=== PATIENT | female | born 1990 | race Caucasian/White ===

== ENCOUNTER 2024-07-05 21:09 | Inpatient (IN) ==
[2024-07-05] MEDS ORDERED: OXYTOCIN 30 UNITS/NSS 30 UNITS/500 ML BAG IV PRN (22:21)
[2024-07-05] MEDS ORDERED: LIDOCAINE 1% LOCAL 20 ML VIAL INFIL PRN (22:21)
[2024-07-05] MEDS ORDERED: CALCIUM CARBONATE 500 MG CHEWABLE TAB PO PRN (22:21)
--- NOTE | 2024-07-05 22:27 | History & Physical Report ---
Date of Service July 05, 2024 Assessment & Plan (1) 37 weeks gestation of : (2) PROM (premature rupture of membranes): (3) Encounter for induction of labor: Plan admit, iv labs. fhts categ 1. pcn for gbs pos. begin pitocin induction, reviewed with couple, epidural when desires. History of Present Illness Chief Complaint: prom at term Primary Care Provider: KATLYN Pepper 33yo at 37+wks ega presents to LD with prom, clear fluid. She notes leaking since having sex this pm, soaking pads. +FM. No ctx. [place] dc. PNC c/b 1. GBS pos 2. HAs, managed with propranolol and supplements. PNL rhpos, ri, gbs pos OBH: g1 GYNH: neg paps, no stds Allergies Allergy/AdvReac Type Severity Reaction Status Date / Time No Known Allergies Allergy Verified 07/05/24 21:32 Home Medications Medication Instructions Recorded Confirmed Type propranolol 40 mg tablet 40 mg PO HS migraines 10/27/22 07/05/24 History magnesium oxide 400 mg (241.3 mg 400 mg PO HS #30 tabs 12/22/22 07/05/24 Rx magnesium) tablet riboflavin (vitamin B2) 400 mg 400 mg PO HS 10/23/23 07/05/24 History tablet cyclobenzaprine 5 mg tablet 5 mg PO HS PRN muscle tension or 01/04/24 07/05/24 Rx spasm #30 tabs clindamycin phosphate 1 % lotion 1 applic topical BID PRN ACNE 03/22/24 07/05/24 Rx BREAKOUT #60 mL desoximetasone 0.25 % topical cream 1 applic topical BID PRN eczema 07/05/24 07/05/24 History ferrous sulfate 325 mg (65 mg 325 mg PO DAILY 07/05/24 07/05/24 History iron) tablet vits no.124-ferrous fum 1 tab PO DAILY 07/05/24 07/05/24 History 27 mg iron-folic acid 800 mcg tablet ( Vitamin) Patient History Medical History (Updated 07/05/24 @ 22:26 by Tonya Cai MD, FACOG) Eczema Acne Chicken pox with gestation of unknown duration Miscarriage History of ovarian cyst Tension headache Elevated C-reactive protein (CRP) Iron deficiency Family history of iron deficiency Headache Neck pain History of hyperlipidemia History of back pain History of anxiety Migraine without aura Surgical History S/P wisdom tooth extraction Family History Father Myocardial infarction Grandfather (Maternal) Myocardial infarction Family/Other Breast cancer Denies family history of Ovarian cancer Prostate cancer Colorectal cancer Social History Smoking Status: Never smoker Do You Dip or Chew Tobacco: No; Hx Alcohol Use: No Hx Substance Use: Yes Preferred Language: Qatari Communication Ability: Effective 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 Beliefs That Will Affect Care: None marital status: marital status details: Barber Fuentes (32) [phone] Current Living Situation: Spouse Current Living Situation Comment: Lives with , 2 dogs, 2 cats- changes litter current occupational status: employed current occupation: [employer] Other Information That Helps Us Care for You: No Feels Safe at Home: Yes Safety Concerns: Feels Safe At This Time Assistive Devices: Glasses Review of Systems as per Subjective / HPI Physical Exam Constitutional: WD/WN, vitals as above Respiratory: normal respiratory effort, lungs clear to auscultation Cardiovascular: Rate/Rhythm: regular rate and regular rhythm Gastrointestinal (Abdomen): soft gravid nt efw 7-8# Musculoskeletal: no edema nontender calves Neurologic: grossly normal Psychiatric: A+Ox3, euthymic affect Genitourinary: Manual OB Exam: + cervical dilation 3 cm, + cervical effacement 80%, + station -2 and + amniotic fluid (sse pooling) clear, nitrazine positive and ferning present OB Exam Monitor Tracing: + external FHT monitor used, + external uterine monitor used (irreg), + category I and + normal FHT variability Results & Data Vital Signs (Past 12 Hours) Vital Signs Temp Pulse Resp BP 07/05/24 21:42 79 114/75 07/05/24 21:37 97.9 F 18 Coding Level of Care Code None Diagnoses 37 weeks gestation of Z3A.37 PROM (premature rupture of membranes) O42.90 Encounter for induction of labor Z34.90
[2024-07-05] MEDS ORDERED: SODIUM CHLORIDE 0.9% 50 ML BAG IV STA (22:33)
[2024-07-05 22:59] LABS: Hematocrit (blood only) 39.3 % (37.0-47.0); Hemoglobin 13.1 g/dl (12.0-16.0); Mean Corpuscular Hemoglobin 29.9 pg (25.0-34.0); Mean Corpuscular Hgb Conc 33.3 g/dL (32.0-36.0); Mean Corpuscular Volume 89.7 fL (80.0-100.0); Mean Platelet Volume 10.4 fL (9.4-12.4); Platelet Count 264 K/uL (130-400); RDW Coefficient of Variation 13.3 % (11.5-14.5); RDW Standard Deviation 43.9 fL (36.4-46.3); Red Blood Count 4.38 M/uL (4.20-5.40); White Blood Count 10.29 K/ul (4.8-10.8)
[2024-07-05] MEDS: PENICILLIN GK 6 MU in SODIUM CHLORIDE 0.9% 250 ML IV STA (22:59)
[2024-07-05] MEDS: OXYTOCIN 30 UNITS/NSS 30 UNITS/500 ML BAG IV PRN (22:59)
[2024-07-05] MEDS: SODIUM CHLORIDE 0.9% 1,000 ML IV SCH (23:59)
[2024-07-06] MEDS ORDERED: fentaNYL citrate PF 100 MCG/2 ML VIAL EPI PRN (00:13)
[2024-07-06] MEDS ORDERED: NALOXONE HCL 1 MG in SODIUM CHLORIDE 0.9% 1,000 ML IV PRN (00:13)
[2024-07-06] MEDS ORDERED: LIDOCAINE 2% MPF LOCAL 5 ML VIAL EPI PRN (00:13)
[2024-07-06] MEDS ORDERED: NALOXONE HCL 0.4 MG/1 ML VIAL/CARP IV PRN (00:13)
[2024-07-06] MEDS ORDERED: ROPIVACAINE 0.5% PF 5 MG/ML 20 ML VIAL EPI PRN (00:13)
[2024-07-06] MEDS ORDERED: BUPIVACAINE 0.25% PF 30 ML VIAL EPI STA (00:13)
[2024-07-06] MEDS ORDERED: fentANYL 2 MCG/ML BUPIVacaine 0.125%-NSS 100ML BAG EPI PRN (00:13)
[2024-07-06] MEDS ORDERED: fentaNYL citrate PF 100 MCG/2 ML VIAL EPI STA (00:13)
[2024-07-06] MEDS ORDERED: LIDOCAINE 2%/EPINEPHRINE 1:200,000 20 ML PF EPI STA (00:13)
[2024-07-06] MEDS ORDERED: SODIUM CHLORIDE 0.9% PF INJ 10 ML VIAL EPI STA (00:13)
[2024-07-06] MEDS ORDERED: NALBUPHINE HCL INJ 10 MG/ML AMP IV PRN (00:13)
[2024-07-06] MEDS ORDERED: BUPIVACAINE 0.25% PF 30 ML VIAL EPI PRN (00:13)
[2024-07-06] MEDS ORDERED: diphenhydrAMINE 50 MG/ML VIAL IV PRN (00:13)
[2024-07-06] MEDS ORDERED: SODIUM CHLORIDE 0.9% PF INJ 10 ML VIAL EPI PRN (00:13)
[2024-07-06] MEDS ORDERED: ONDANSETRON INJ 2 MG/ML 2 ML VIAL IV PRN (00:13)
[2024-07-06] MEDS ORDERED: ePHEDrine sulfate 50 MG/ML AMP IV PRN (00:13)
--- NOTE | 2024-07-06 00:15 | Anesthesiology Consultation ---
Date of Service July 06, 2024 Assessment & Plan (1) Encounter for pre-operative examination: Chart Review Chart Review: Patient NOT seen in Pre Admission Testing and Acceptable Risk for Labor Epidural Consults Requested none History Height/Weight Height: 5 ft 5 in Weight: 81.647 kg Allergies Allergy/AdvReac Type Severity Reaction Status Date / Time No Known Allergies Allergy Verified 07/05/24 21:32 Medications Home Medications Medication Instructions Recorded Confirmed Last Taken propranolol 40 mg tablet 40 mg PO HS migraines 10/27/22 07/05/24 07/04/24 21:00 magnesium oxide 400 mg (241.3 mg 400 mg PO HS #30 tabs 12/22/22 07/05/24 07/04/24 magnesium) tablet riboflavin (vitamin B2) 400 mg 400 mg PO HS 10/23/23 07/05/24 07/04/24 tablet cyclobenzaprine 5 mg tablet 5 mg PO HS PRN muscle tension or 01/04/24 07/05/24 Unknown spasm #30 tabs clindamycin phosphate 1 % lotion 1 applic topical BID PRN ACNE 03/22/24 07/05/24 Unknown BREAKOUT #60 mL desoximetasone 0.25 % topical cream 1 applic topical BID PRN eczema 07/05/24 07/05/24 Unknown ferrous sulfate 325 mg (65 mg 325 mg PO DAILY 07/05/24 07/05/24 07/04/24 21:00 iron) tablet vits no.124-ferrous fum 1 tab PO DAILY 07/05/24 07/05/24 07/04/24 27 mg iron-folic acid 800 mcg tablet ( Vitamin) Active Medications Generic Name Dose Route Start Last Admin Trade Name Evin PRN Reason Stop Dose Admin Oxytocin 30 units in 500 mls @ 1 mls/hr 07/05/24 22:21 07/05/24 22:59 Pitocin 30 Units/Nss IV 07/07/24 22:20 0.06 units/hr .Q24H PRN 1 mls/hr Labor Induction/Augmentation Administration Protocol 0.06 UNITS/HR Sodium Chloride 1,000 mls @ 50 mls/hr 07/05/24 23:30 07/06/24 00:32 Nss IV 07/06/24 23:29 50 mls/hr .Q20H WINSOME Infusion Past Medical History Medical History (Updated 07/06/24 @ 00:15 by Demetrius Bowles MD) Encounter for pre-operative examination Eczema Acne Chicken pox with gestation of unknown duration Miscarriage History of ovarian cyst Tension headache Elevated C-reactive protein (CRP) Iron deficiency Family history of iron deficiency Headache Neck pain History of hyperlipidemia History of back pain History of anxiety Migraine without aura Exercise / Class Metabolic Activity II 4-5 Yardwork/Stairs/Walk up hill Past Family History Family History Father Myocardial infarction Grandfather (Maternal) Myocardial infarction Family/Other Breast cancer Denies family history of Ovarian cancer Prostate cancer Colorectal cancer Past Surgical History Surgical History S/P wisdom tooth extraction Social History Smoking Status: Never smoker Do You Dip or Chew Tobacco: No Hx Alcohol Use: No Hx Substance Use: Yes substance use type: does not use Physical Exam Vital Signs Last Vital Signs Temp 36.9 C 07/05/24 23:13 Pulse 74 07/06/24 00:38 Resp 18 07/05/24 23:13 BP 113/79 07/06/24 00:38 Pulse Ox 99 07/06/24 00:36 Testing Laboratory Results 07/05/24 22:27
[2024-07-06] MEDS: fentaNYL citrate PF 100 MCG/2 ML VIAL ONE (00:39)
[2024-07-06] MEDS: BUPIVACAINE 0.25% PF 30 ML VIAL ONE (00:39)
[2024-07-06] MEDS: LIDOCAINE 2%/EPINEPHRINE 1:200,000 20 ML PF ONE (00:39)
[2024-07-06] MEDS: fentANYL 2 MCG/ML BUPIVacaine 0.125%-NSS 100ML BAG ONE (00:41)
[2024-07-06] MEDS ORDERED: PENICILLIN GK 3 MU in DEXTROSE 5% 100 ML IV PRN (01:21)
--- NOTE | 2024-07-06 03:00 | Delivery Summary ---
Vaginal Delivery Summary Date of Service July 06, 2024 Vaginal Delivery Summary The patient dilated to complete and pushed to deliver a viable female infant Apgars 8 and 9 via over midline episiotomy. Informed consent obtained for episiotomy. Mouth and nose bulb suctioned at perineum. Shoulders and body delivered with ease. Infant was vigorous and crying at . Cord clamped at 30 seconds of life and infant to maternal abdomen where the cord was then doubly clamped and cut. Placenta delivered spontaneously and intact, three-vessel cord. Hemostasis achieved with dilute pitocin and uterine massage. Cervix and sulci intact. QBL 434 cc. Episiotomy repaired in routine fashion with 3-0 vicryl. Mother and baby stable in recovery. [facility] Vaginal Delivery Charge Delivery Type Details:
[2024-07-06] MEDS ORDERED: OXYTOCIN 30 UNITS/NSS 30 UNITS/500 ML BAG IV PRN (03:08)
[2024-07-06] MEDS ORDERED: HYDROCORTISONE ACETATE 25 MG SUPP PR PRN (03:08)
[2024-07-06] MEDS: ePHEDrine sulfate 50 MG/ML AMP ONE (03:39)
[2024-07-06] MEDS: SODIUM CHLORIDE 0.9% PF INJ 10 ML VIAL ONE (03:40)
[2024-07-06] MEDS: DIPHTHER/TETAN/PERTUS Vaccine (Tdap, Adol/Adult) 0.5mL IM ONE (04:09)
--- NOTE | 2024-07-06 05:56 | Anesthesia Procedure Note ---
Date of Service July 06, 2024 Anesthesia Post Epidural Note Vital Signs Vital Signs: Temp Pulse Resp BP Pulse Ox 36.6 C 82 16 101/61 96 07/06/24 01:10 07/06/24 05:11 07/06/24 04:26 07/06/24 05:11 07/06/24 02:57 Notes Mental Status: alert / awake / arousable and participated in evaluation Patient Amnestic to Procedure: No Nausea / Vomiting: adequately controlled Pain: adequately controlled Airway Patency, RR, SpO2: stable & adequate BP & HR: stable & adequate Hydration State: stable & adequate Neuraxial Anesthesia: was administered and sensory block is resolving Anesthetic Complications: no major complications apparent and Pt Satisfied with anesthetic care Epidural: Removed without complications and With tip intact
[2024-07-06] MEDS: IBUPROFEN 600 MG TAB PO PRN (08:40)
[2024-07-06] MEDS: PRENATAL VITAMIN 1 TAB PO SCH (08:41)
[2024-07-06] MEDS: DOCUSATE SODIUM 100 MG CAP PO SCH (08:41)
[2024-07-06] MEDS: BENZOCAINE 20% SPRY 85 APPLN/85 GM CAN EXT PRN (10:27)
[2024-07-06] MEDS: ACETAMINOPHEN 325 MG TAB PO PRN (10:27)
[2024-07-06] MEDS ORDERED: NON-FORMULARY MEDICATION (Riboflavin (Vitamin B2) 400 mg tablet) PO SCH (21:00)
[2024-07-06] MEDS ORDERED: MAGNESIUM OXIDE 400 MG TAB PO SCH (21:00)
[2024-07-06] MEDS: PROPRANOLOL HCL 20 MG TAB PO SCH (21:27)
[2024-07-07] MEDS: oxyCODONE/ACETAMINOPHEN 5mg/325mg TAB PO PRN (02:15)
--- NOTE | 2024-07-07 09:01 | Obstetrical Progress Note ---
Date of Service July 07, 2024 Patient doing well. Minimal bleeding, no extremity pain she has no calf tenderness she is tolerating a regular diet she is voiding well she has no depression Assessment & Plan (1) Encounter for induction of labor: meets discharge criteria no extremity pain bleeding is minimal home Physical Exam Constitutional WD/WN, vitals as above well developed and well nourished Respiratory normal respiratory effort, lungs clear to auscultation normal respiratory effort Cardiovascular RRR, no murmur, no edema Gastrointestinal (Abdomen) normal bowel sounds, soft, nontender, no hepatosplenomegaly Results & Data Vital Signs (Past 12 Hours) Vital Signs Temp Pulse Pulse Resp BP Pulse Ox O2 Del Method 07/07/24 00:55 97.5 F L 73 18 114/76 95 Room Air 07/06/24 21:25 68 105/72
[2024-07-07] MEDS ORDERED: Nursing to Pharmacy Communication SCH (13:30)
[2024-07-07 14:10] LABS: Hematocrit (blood only) 33.5 % (37.0-47.0)
[2024-07-07] MEDS: bisacodyL 5 MG TABEC PO SCH (21:45)
[2024-07-08 00:36] VITALS: RESP 16; O2SAT 97
--- NOTE | 2024-07-08 06:52 | Obstetrical Progress Note ---
Date of Service July 08, 2024 Patient doing well. Minimal bleeding, no extremity pain she has no calf tenderness she is tolerating a regular diet she is voiding well she has no depression Assessment & Plan (1) Group B streptococcal infection during : day 2 she is doing well she is still working on breast-feeding however she feels it is slightly better she has no extremity pain discussed discharge planning any problems she will contact our office sooner but plan discharge today Physical Exam Constitutional WD/WN, vitals as above well developed and well nourished Respiratory normal respiratory effort, lungs clear to auscultation normal respiratory effort Cardiovascular RRR, no murmur, no edema Gastrointestinal (Abdomen) normal bowel sounds, soft, nontender, no hepatosplenomegaly Results & Data Vital Signs (Past 12 Hours) Vital Signs Temp Pulse Pulse Resp BP Pulse Ox O2 Del Method 07/07/24 23:40 97.7 F 71 16 119/79 97 Room Air 07/07/24 20:30 98.2 F 78 18 109/73 96 Room Air
[2024-07-08 08:28] VITALS: BP 120/85; PULSE 76; TEMP 97.9
== END 2024-07-08 17:00 | disposition home or self-care (01) | DRG 807 ==
LOC: OPB 21:09 → 4S1 21:12 → 4E2 07-06 05:54